=== PATIENT | female | born 1995 | race Hispanic/Latino ===

== ENCOUNTER 2018-06-01 09:20 | Emergency (ER) | payer SELFPAY ==
[2018-06-01 11:14] LABS: CARBON DIOXIDE 27 mmol/L (21-32); CHLORIDE 104 mmol/L (101-111); CREATININE 0.6 mg/dL (0.5-1.5); GLOMERULAR FILTR. RATE CALC 134 mL/min (>60); GLUCOSE,RANDOM 105 mg/dL (70-105); POTASSIUM 3.5 mmol/L (3.5-5.1); SODIUM SERUM 139 mmol/L (136-145); UREA NITROGEN, BLOOD 13 mg/dL (7-18)
[2018-06-01 11:18] LABS: ALANINE AMINOTRANSFERASE 24 U/L (12-78); ASPARTATE AMINOTRANSFERASE 18 U/L (10-37); BILIRUBIN,TOTAL 0.6 mg/dL (0.2-1.0); TOTAL PROTEIN, SERUM 7.2 g/dL (6.0-8.3)
[2018-06-01 11:19] LABS: BASOPHILS % (AUTO) 0.6 % (0.0-5.0); EOSINOPHILS % (AUTO) 1.4 % (0.0-8.0); LYMPHOCYTES % (AUTO) 20.6 % (21.0-51.0); MEAN CORPUSCULAR HEMOGLOBIN 30.5 pg (27.0-33.0); MEAN CORPUSCULAR HGB CONC 33.8 g/dL (32.0-36.0); MEAN CORPUSCULAR VOLUME 90.1 fL (80-100); MONOCYTES % (AUTO) 6.6 % (3.0-13.0); NEUTROPHILS % (AUTO) 70.8 % (40.0-77.0); NUCLEATED RED BLOOD CELLS 0.1 % (0.0-0.19); PLATELET COUNT (AUTO) 345 K/uL (130-400); RED BLOOD CELL COUNT(AUTO) 4.56 MIL/uL (4.00-5.50); RED CELL DISTRIBUTION WIDTH 13.5 % (11.0-15.5); WHITE BLOOD COUNT (AUTO) 7.6 K/uL (4.8-10.8)
[2018-06-01 11:30] LABS: LIPASE < 50 U/L (114-286)
== END 2018-06-01 13:45 | disposition home or self-care (01) ==
LOC: EDH 09:20
DX: S00.83XA Contusion of other part of head, initial encounter (principal); S21.259A Open bite of unspecified back wall of thorax without penetration into thoracic cavity, initial encounter; Z72.0 Tobacco use; Y04.1XXA Assault by human bite, initial encounter; Y93.89 Activity, other specified; Y92.89 Other specified places as the place of occurrence of the external cause; Y99.8 Other external cause status
CPT/HCPCS: 36415; 70450; 70486; 72050; 72100; 80053; 81025; 83690; 85025

== ENCOUNTER 2019-06-29 14:53 | Emergency (ER) | payer SELFPAY ==
[2019-06-29 15:14] LABS: APPEARANCE,URINE Cloudy (CLEAR); BILIRUBIN,URINE Negative (NEGATIVE); COLOR,URINE Yellow (YELLOW); GLUCOSE, URINE (UA) Negative (NEGATIVE); HCG,QUAL RESULT NEGATIVE (NEGATIVE); KETONES,URINE Negative (NEGATIVE); LEUKOCYTE ESTERASE ,URINE Negative (NEGATIVE); NITRATE,URINE Negative (NEGATIVE); OCCULT BLOOD,URINE Negative (NEGATIVE); PROTEIN,URINE Negative (NEGATIVE)
[2019-06-29 15:51] LABS: BACTERIA,URINE Few /HPF (None Seen); MUCUS,URINE Few LPF (None Seen); RBC,URINE 0-1 /HPF (0-1); SQUAMOUS EPITHELIAL CELL,UR 0-2 /HPF (0-2); WBC,URINE 0-1 /HPF (0-1)
[2019-06-29] MEDS ORDERED: ACETAMINOPHEN EXTRA STRENGTH 500 MG TABLET ONE (16:42)
[2019-06-29 16:58] LABS: BASOPHILS % (AUTO) 0.7 % (0.0-5.0); EOSINOPHILS % (AUTO) 2.5 % (0.0-8.0); HEMATOCRIT 45.1 % (36-48); LYMPHOCYTES % (AUTO) 21.5 % (21.0-51.0); MEAN CORPUSCULAR HEMOGLOBIN 30.8 pg (27.0-33.0); MEAN CORPUSCULAR HGB CONC 33.5 g/dL (32.0-36.0); MEAN CORPUSCULAR VOLUME 91.9 fL (79-99); MONOCYTES % (AUTO) 7.7 % (3.0-13.0); NEUTROPHILS % (AUTO) 67.3 % (40.0-77.0); PLATELET COUNT (AUTO) 355 K/uL (130-400); RED BLOOD CELL COUNT(AUTO) 4.91 MIL/uL (4.00-5.50); RED CELL DISTRIBUTION WIDTH 13.1 % (11.0-15.5); WHITE BLOOD COUNT (AUTO) 11.7 K/uL (4.8-10.8)
[2019-06-29 17:07] LABS: CREATININE 0.7 mg/dL (0.5-1.5); POTASSIUM 4.3 mmol/L (3.5-5.1)
[2019-06-29 17:11] LABS: ALBUMIN 4.1 g/dL (3.5-5.0); BILIRUBIN,TOTAL 0.3 mg/dL (0.2-1.0); TOTAL PROTEIN, SERUM 7.6 g/dL (6.0-8.3)
== END 2019-06-29 17:31 | disposition home or self-care (01) ==
LOC: EDH 14:53
DX: M54.5 Low back pain (principal); R10.2 Pelvic and perineal pain; Z72.0 Tobacco use
CPT/HCPCS: 36415; 76856; 80053; 81001; 81025; 85025

== ENCOUNTER 2020-01-24 13:13 | Emergency (ER) | payer SELFPAY ==
[2020-01-24] MEDS ORDERED: KETOROLAC TROMETHAMINE 30MG/ML ONE (13:42)
== END 2020-01-24 14:16 | disposition home or self-care (01) ==
LOC: EDH 13:13
DX: M79.604 Pain in right leg (principal); M62.838 Other muscle spasm; Z72.0 Tobacco use
CPT/HCPCS: 81025; 96372; 99283; J1885

== ENCOUNTER 2021-08-10 00:16 | Emergency (ER) | payer MEDICAID ==
[~2021-08-10] VITALS: Ht 170.2 cm; Wt 89.4 kg
[2021-08-10 00:53] LABS: BASOPHILS % (AUTO) 0.4 % (0.0-5.0); EOSINOPHILS % (AUTO) 0.7 % (0.0-8.0); HEMATOCRIT 49.5 % (36-48); LYMPHOCYTES % (AUTO) 16.9 % (21.0-51.0); MEAN CORPUSCULAR HEMOGLOBIN 29.2 pg (27.0-33.0); MEAN CORPUSCULAR HGB CONC 33.9 g/dL (32.0-36.0); MEAN CORPUSCULAR VOLUME 85.9 fL (79-99); MONOCYTES % (AUTO) 5.6 % (3.0-13.0); NEUTROPHILS % (AUTO) 75.9 % (40.0-77.0); PLATELET COUNT (AUTO) 393 K/uL (130-400); RED BLOOD CELL COUNT(AUTO) 5.76 MIL/uL (4.00-5.50); RED CELL DISTRIBUTION WIDTH 12.3 % (11.0-15.5); WHITE BLOOD COUNT (AUTO) 14.8 K/uL (4.8-10.8)
[2021-08-10 00:56] LABS: APPEARANCE,URINE CLEAR (CLEAR); BILIRUBIN,URINE NEGATIVE (NEGATIVE); COLOR,URINE YELLOW (YELLOW); GLUCOSE, URINE (UA) >=1000 mg/dL (NEGATIVE); KETONES,URINE 15 mg/dL (NEGATIVE); LEUKOCYTE ESTERASE ,URINE TRACE (NEGATIVE); NITRATE,URINE POSITIVE (NEGATIVE); OCCULT BLOOD,URINE TRACE-LYSED (NEGATIVE); PROTEIN,URINE NEGATIVE (NEGATIVE); UROBILINOGEN,URINE 0.2 mg/dL (0.2-1.0)
[2021-08-10] MEDS ORDERED: IBUPROFEN 800 MG TAB PO ONE (01:00)
[2021-08-10 01:08] LABS: CREATININE 0.8 mg/dL (0.5-1.5); POTASSIUM 3.1 mmol/L (3.5-5.1)
[2021-08-10 01:14] LABS: ALBUMIN 4.3 g/dL (3.5-5.0); BILIRUBIN,TOTAL 0.5 mg/dL (0.2-1.0); TOTAL PROTEIN, SERUM 9.2 g/dL (6.0-8.3)
[2021-08-10 01:19] LABS: BACTERIA,URINE Many /HPF (None Seen); WBC,URINE 26-50 /HPF (0-1)
[2021-08-10] MEDS ORDERED: CEFTRIAXONE 1G VIAL IVP ONE (01:30)
[2021-08-10] MEDS ORDERED: ONDANSETRON 4MG INJ IVP ONE (01:30)
[2021-08-10] MEDS ORDERED: 0.9%NACL 1000ML 1,000 ML IV ONE (01:30)
[2021-08-10 01:36] LABS: ABG OXYGEN SATURATION 71.1 % (95.0-99.0); BASE EXCESS,VENOUS BLOOD GAS -4.3 (-2.0-3.0); HCO3,VENOUS BLOOD GAS 20.2 (21.0-28.0); PCO2,VENOUS BLOOD GAS 35 (32-45); PH,VENOUS BLOOD GAS 7.376 (7.350-7.450)
[2021-08-10] MEDS ORDERED: KCL 20 MEQ ERTAB PO ONE (02:00)
[2021-08-10] MEDS ORDERED: IBUP-2070 PO (03:29)
[2021-08-10] MEDS ORDERED: ONDA4TAB10 PO (03:29)
[2021-08-10] MEDS ORDERED: SULF1TAB42 PO (03:29)
[2021-08-10] MEDS ORDERED: ACETAMINOPHEN 500 MG TABLET PO ONE (03:30)
[2021-08-10 03:31] VITALS: BP 121/77
== END 2021-08-10 03:47 | disposition home or self-care (01) ==
LOC: EDH 00:16
DX: N12 Tubulo-interstitial nephritis, not specified as acute or chronic (principal); E87.6 Hypokalemia; E86.0 Dehydration; Z20.822 Contact with and (suspected) exposure to COVID-19; Z79.1 Long term (current) use of non-steroidal anti-inflammatories (NSAID)
CPT/HCPCS: 36415; 36600; 80053; 81001; 81025; 82435; 82550; 82803; 82947; 83605 ×2; 84132; 84295; 85025; 87040 ×2; 87077; 87088; 87186; 87635; 87804 ×2; 87880; 96374; 96375; 99284; C9803; J0696; J2405